=== PATIENT | female | born 1990 | race American Indian/Alaskan Native ===

== ENCOUNTER 2016-10-24 19:44 | Emergency (ER) | payer BC, MEDICAID ==
[2016-10-24 20:04] VITALS: RESP 20; TEMP 99.1; BMI 28.3
[2016-10-24] MEDS ORDERED: Sodium Chloride 0.9% 1,000 ML IV STA (21:31)
[2016-10-24 21:44] LABS: ADD MANUAL DIFF? NO
[2016-10-24 21:55] LABS: BASO # 0.03 K/mm3 (0.0-2.0); BASO % 0.4 % (0.0-3.0); EOS # 0.1 (0.0-0.7); EOS % 1.8 % (1.5-5.0); GRAN # 2.79 (1.4-6.5); GRAN % 38.7 % (50.0-68.0); HEMATOCRIT 38.4 % (36.0-48.0); LYMPH # 3.7 (1.2-3.4); LYMPH % 51.8 % (22.0-35.0); MEAN CELL VOLUME 88.9 fL (80.0-105.0); MEAN CORPUSCULAR HEMOGLOBIN 29.6 pg (25.0-35.0); MEAN CORPUSCULAR HGB CONC 33.3 g/dl (31.0-37.0); MEAN PLATELET VOLUME 8.7 fl (7.0-11.0); MONO # 0.5 (0.1-0.6); MONO % 7.3 % (1.0-6.0); PLATELET COUNT 308 10^3/uL (120.0-450.0); RED CELL DISTRIBUTION WIDTH 13.1 % (11.5-14.5); WHITE BLOOD COUNT 7.2 10^3/ul (4.5-11.0)
[2016-10-24 21:57] LABS: ALB/GLOB RATIO 1.1 (1.1-1.8); ALKALINE PHOSPHATASE 69 U/L (38-133); ALT/SGPT 25 U/L (7-56); AST/SGOT 20 U/L (15-39); BILIRUBIN,TOTAL 0.8 mg/dL (0.2-1.3); BLOOD UREA NITROGEN 11 mg/dL (7-21); CALCIUM 9.5 mg/dL (8.4-10.5); CARBON DIOXIDE 31 mmol/L (21-33); CHLORIDE 100 mmol/L (98-107); GFR AFRICAN-AMERICAN > 60; GLUCOSE,RANDOM 85 mg/dL (70-110); POTASSIUM 4.2 mmol/L (3.6-5.0); SODIUM 140 mmol/L (132-148); TOTAL PROTEIN 8.1 g/dL (5.8-8.3)
[2016-10-24 22:07] LABS: PH,URINE 6.5 (4.7-8.0); URINE BILIRUBIN NEGATIVE (NEGATIVE); URINE BLOOD NEGATIVE (NEGATIVE); URINE GLUCOSE (UA) NEGATIVE (NEGATIVE); URINE KETONE NEGATIVE (NEGATIVE); URINE LEUKOCYTE ESTERASE NEGATIVE Leu/uL (NEGATIVE); URINE PROTEIN NEGATIVE mg/dL (<30 mg/dL); URINE UROBILINOGEN 0.2 E.U./dL (<1 E.U./dL)
[2016-10-24 22:21] LABS: URINE APPEARANCE CLEAR (CLEAR); URINE COLOR YELLOW (YELLOW)
--- NOTE | 2016-10-24 22:54 | ED PDOC ---
Arrival/HPI - General Chief Complaint: Female Genitourinary Time Seen by Provider: 10/24/16 20:09 Historian: Patient - History of Present Illness Narrative History of Present Illness (Text): 10/24/16 22:51 25-year-old female presents today with a one-week history of migraines. Patient states for the past week she's been having on and off headaches. Patient states she takes Motrin for pain with some improvement. She denies dizziness or weakness. Denies chest pain or shortness of breath. Patient states she's had headaches in the past but never as severe. Patient states headache started about a week ago as a throbbing sensation gradually increasing. Patient states she is able to sleep when she wakes up sometimes she has the headache and sometimes she doesn't. She denies any recent trauma or injury. She denies neck or back pain. Denies vomiting or diarrhea. Patient also complaining of vaginal pressure. Patient denies vaginal discharge. She denies . She denies any abdominal pain. She denies any urinary symptoms. Patient states she just has this pressure in the suprapubic region and states that the last time that she had this she had a polyp that needed to be removed by her skin grader. Time/Duration: 1 week Symptom Onset: Gradual Symptom Course: Intermittent Quality: Throbbing Severity Level: 4 Past Medical History - Provider Review Nursing Documentation Reviewed: Yes - Travel History Have you recently traveled outside [place] w/in the past 3 mons?: No - Infectious Disease Hx of Infectious Diseases: None - Psychiatric Hx Substance Use: No - Surgical History Other/Comment: pylops removed, fibroids removed. - Anesthesia Hx Anesthesia: Yes Hx Anesthesia Reactions: No Family/Social History - Physician Review Nursing Documentation Reviewed: Yes Family/Social History: Unknown Family HX Smoking Status: Never Smoked Hx Alcohol Use: Yes Hx Substance Use: No Allergies/Home Meds Allergies/Adverse Reactions: Allergies No Known Allergies Allergy (Verified 10/24/16 20:04) Review of Systems - Review of Systems Constitutional: absent: Fatigue, Fevers ENT: absent: Sinus Congestion Respiratory: absent: SOB, Cough Cardiovascular: absent: Chest Pain, Palpitations Gastrointestinal: Abdominal Pain. absent: Constipation, Diarrhea, Nausea, Vomiting Genitourinary Female: absent: Dysuria, Frequency, Hematuria, Vaginal Bleeding, Vaginal Discharge Musculoskeletal: absent: Arthralgias, Back Pain, Neck Pain Skin: absent: Rash, Pruritis Neurological: Headache. absent: Dizziness, Gait Changes, Speech Changes, Disequilibrium, Seizure Psychiatric: absent: Anxiety, Depression, Suicidal Ideation Physical Exam Vital Signs Reviewed: Yes Vital Signs Temp Pulse Resp BP Pulse Ox 10/25/16 00:13 81 20 131/69 100 10/24/16 20:04 99.1 F 74 20 164/86 H 99 Temperature: Afebrile Blood Pressure: Hypertensive Pulse: Regular Respiratory Rate: Normal Appearance: Positive for: Well-Appearing, Non-Toxic, Comfortable Pain Distress: None Mental Status: Positive for: Alert and Oriented X 3 - Systems Exam Head: Present: Atraumatic Pupils: Present: PERRL Extroacular Muscles: Present: EOMI Conjunctiva: Present: Normal Mouth: Present: Moist Mucous Membranes Pharnyx: Present: Normal Nose (External): Present: Atraumatic Nose (Internal): Present: Normal Inspection Neck: Present: Normal Range of Motion Respiratory/Chest: Present: Clear to Auscultation, Good Air Exchange. No: Respiratory Distress, Accessory Muscle Use Cardiovascular: Present: Regular Rate and Rhythm, Normal S1, S2. No: Murmurs Abdomen: Present: Normal Bowel Sounds. No: Tenderness, Distention, Peritoneal Signs, Rebound, Guarding Genitourinary/Pelvic Exam: Present: Other (PT REFUSED PELVIC EXAMINATION) Back: Present: Normal Inspection. No: Midline Tenderness, Paraspinal Tenderness Upper Extremity: Present: Normal ROM Lower Extremity: Present: Normal ROM Neurological: Present: GCS=15, Speech Normal, Motor Func Grossly Intact Skin: Present: Warm, Dry, Normal Color. No: Rashes Psychiatric: Present: Alert, Oriented x 3 Medical Decision Making ED Course and Treatment: 10/24/16 22:54 25-year-old female nontoxic well-appearing no distress complaining of a one- week history of intermittent headaches and a 1 week history of suprapubic pressure. Urine hCG negative Patient is nontoxic well-appearing in no distress. She is laughing and face timing at bedside. CBC wnl CMP wnl UA: wnl Transvaginal ultrasound:FINDINGS: Uterus: Uterus measures approximately 9 x 5.2 x 6.1 cm. Endometrium is not well- demonstrated. Right ovary: Right ovary was not identified Left ovary: Left ovary was not identified Free fluid: There is trace free fluid in the cul-de-sac Bladder: Bladder is incompletely distended which limits evaluation. IMPRESSION: Limited transabdominal pelvic ultrasound due to incomplete bladder distention EXAM: US Pelvis, Transvaginal There are no prior studies for comparison. FINDINGS: Uterus: Uterus is retroflexed. The uterus measures approximate 8.4 x 5.6 x 5.6 cm.There is a nabothian cyst in the cervix. Endometrium measures opacity 17 mm in width Right ovary: Right ovary measures approximately 4.03 x 2.37 x 2.79 cm.There are multiple small follicles. There is intraovarian blood flow. Left ovary: Left ovary measures approximately 3.83 x 2.99 x 3.21 cm.There are multiple small follicles. There is intraovarian blood flow. Free fluid: There is a small amount of free fluid in the cul-de-sac. Bladder: Empty bladder which cannot be evaluated with this probe. IMPRESSION: Prominent endometrium; no torsion head CT: FINDINGS: Brain: Ventricles are normal in size and configuration. There is no midline shift. There are no intraaxial or extra-axial mass lesions or areas of hemorrhage. There are no abnormal fluid collections. Kemp-white differentiation is maintained. Ventricles: See above. Bones: Cranial vault is intact. Soft tissues: unremarkable Sinuses: There is no acute sinusitis. There is a small retention cyst/polyp in the left maxillary antrum Ears and mastoids: Middle ears and mastoids are unremarkable Orbits: Orbital contents are unremarkable. IMPRESSION: No acute intracranial abnormality pt given toradol and reglan 10/25/16 01:05 i discussed all results in depth with patient; pt non toxic well appearing; no distress. bp improved; i advised patient of elevated blood pressure and need for f/u with pmd to have bp checked; i have advised f/u with neurologist regarding headaches and f/u with sales relationship manager for lower abdominal pain. advised immediate return if symptoms worsen,persist or if new symptoms develop. impression; headache, abdominal pain increase fluids motrin every 6 hours as needed for pain follow up with the primary care physician within the next 2 days follow up with the neurologist within the next 2 days follow up with the MACHINE COIL ASSEMBLER within the next 2 days return if symptoms worsen,persist or if new symptoms develop; high fevers, increasing pain, nausea/vomiting, dizziness or if any other concerning symptoms develop. - Lab Interpretations Lab Results: 10/24/16 21:30 10/24/16 21:30 Lab Results 10/24/16 21:30: WBC 7.2, RBC 4.32, Hgb 12.8, Hct 38.4, MCV 88.9, MCH 29.6, MCHC 33.3, RDW 13.1, Plt Count 308, MPV 8.7, Gran % 38.7 L, Lymph % (Auto) 51.8 H, [place] % (Auto) 7.3 H, Eos % (Auto) 1.8, Baso % (Auto) 0.4, Gran # 2.79, Lymph # 3.7 H, [place] # 0.5, Eos # 0.1, Baso # 0.03 10/24/16 21:30: Sodium 140, Potassium 4.2, Chloride 100, Carbon Dioxide 31, Anion Gap 13, BUN 11, Creatinine 0.7, Est GFR ( Amer) > 60, Est GFR (Non- Af Amer) > 60, Random Glucose 85, Calcium 9.5, Total Bilirubin 0.8, AST 20, ALT 25, Alkaline Phosphatase 69, Total Protein 8.1, Albumin 4.3, Globulin 3.8, Albumin/Globulin Ratio 1.1 10/24/16 21:15: Urine Color Yellow, Urine Appearance Clear, Urine pH 6.5, Ur Specific Maud 1.010, Urine Protein Negative, Urine Glucose (UA) Negative, Urine Ketones Negative, Urine Blood Negative, Urine Nitrate Negative, Urine Bilirubin Negative, Urine Urobilinogen 0.2, Ur Leukocyte Esterase Negative - RAD Interpretation Radiology Orders: 10/24/16 21:44 TRANSVAGINAL [US] Stat 10/24/16 22:55 HEAD W/O CONTRAST [CT] Stat - Medication Orders Current Medication Orders: Sodium Chloride (Sodium Chloride 0.9%) 1,000 mls @ 999 mls/hr IV .Q1H1M STA Stop: 10/25/16 01:48 Last Admin: 10/25/16 01:02 Dose: 999 mls/hr Discontinued Medications Sodium Chloride (Sodium Chloride 0.9%) 1,000 mls @ 999 mls/hr IV .Q1H1M STA Stop: 10/24/16 22:31 Last Admin: 10/24/16 21:30 Dose: 999 mls/hr Ketorolac Tromethamine (Toradol) 30 mg IVP STAT STA Stop: 10/24/16 22:48 Last Admin: 10/24/16 23:44 Dose: 30 mg Metoclopramide HCl (Reglan) 10 mg IVP STAT STA Stop: 10/25/16 00:49 Last Admin: 10/25/16 01:02 Dose: 10 mg Disposition/Present on Arrival - Present on Arrival Any Indicators Present on Arrival: No History of DVT/PE: No History of Uncontrolled Diabetes: No Urinary Catheter: No History of Decub. Ulcer: No History Surgical Site Infection Following: None - Disposition Have Diagnosis and Disposition been Completed?: Yes Diagnosis: Headache, Abdominal pain Disposition: HOME/ ROUTINE Disposition Time: 01:08 Patient Plan: Discharge Condition: GOOD Discharge Instructions (ExitCare): General Headache (ED), Acute Abdominal Pain (ED) Additional Instructions: increase fluids motrin every 6 hours as needed for pain follow up with the primary care physician within the next 2 days follow up with the neurologist within the next 2 days follow up with the MACHINE COIL ASSEMBLER within the next 2 days return if symptoms worsen,persist or if new symptoms develop; high fevers, increasing pain, nausea/vomiting, dizziness or if any other concerning symptoms develop. Prescriptions: Ibuprofen [Motrin] 600 mg PO Q6H PRN #20 tab PRN Reason: pain/fever reduction Referrals: Juan David Sandoval MD [Primary Care Provider] - Follow up with primary Marcin Lay MD [Staff Provider] - Follow up with primary Margret Jain MD [Staff Provider] - Follow up with primary Forms: WORK NOTE
--- NOTE | 2016-10-24 23:26 | US ---
EXAM: US Pelvis Complete, Transabdominal CLINICAL HISTORY: 25 years old, female; Pain; Vaginal pain; LMP 10/10/16 TECHNIQUE: Real-time transabdominal pelvic ultrasound (complete) with image documentation. COMPARISON: There are no prior studies for comparison. FINDINGS: Uterus: Uterus measures approximately 9 x 5.2 x 6.1 cm. Endometrium is not well-demonstrated. Right ovary: Right ovary was not identified Left ovary: Left ovary was not identified Free fluid: There is trace free fluid in the cul-de-sac Bladder: Bladder is incompletely distended which limits evaluation. IMPRESSION: Limited transabdominal pelvic ultrasound due to incomplete bladder distention EXAM: US Pelvis, Transvaginal CLINICAL HISTORY: 25 years old, female; Pain; Vaginal pain; LMP 10/10/16 TECHNIQUE: Real-time transvaginal pelvic ultrasound (complete) with image documentation. Transvaginal imaging was used for better evaluation of the endometrium and adnexa. EXAM DATE/TIME: 10/24/2016 9:44 PM COMPARISON: There are no prior studies for comparison. FINDINGS: Uterus: Uterus is retroflexed. The uterus measures approximate 8.4 x 5.6 x 5.6 cm.There is a nabothian cyst in the cervix. Endometrium measures opacity 17 mm in width Right ovary: Right ovary measures approximately 4.03 x 2.37 x 2.79 cm.There are multiple small follicles. There is intraovarian blood flow. Left ovary: Left ovary measures approximately 3.83 x 2.99 x 3.21 cm.There are multiple small follicles. There is intraovarian blood flow. Free fluid: There is a small amount of free fluid in the cul-de-sac. Bladder: Empty bladder which cannot be evaluated with this probe. IMPRESSION: Prominent endometrium; no torsion
--- NOTE | 2016-10-24 23:29 | CT ---
EXAM: CT Head Without Intravenous Contrast CLINICAL HISTORY: 25 years old, female; Pain; Headache; Headache not specified TECHNIQUE: Axial computed tomography images of the head/brain without intravenous contrast. This CT exam was performed using one or more of the following dose reduction techniques: automated exposure control, adjustment of the mA and/or kV according to patient size, and/or use of iterative reconstruction technique. EXAM DATE/TIME: 10/24/2016 10:55 PM COMPARISON: There are no prior studies for comparison. FINDINGS: Brain: Ventricles are normal in size and configuration. There is no midline shift. There are no intra-axial or extra-axial mass lesions or areas of hemorrhage. There are no abnormal fluid collections. Kemp-white differentiation is maintained. Ventricles: See above. Bones: Cranial vault is intact. Soft tissues: unremarkable Sinuses: There is no acute sinusitis. There is a small retention cyst/polyp in the left maxillary antrum Ears and mastoids: Middle ears and mastoids are unremarkable Orbits: Orbital contents are unremarkable. IMPRESSION: No acute intracranial abnormality
[2016-10-25 00:15] VITALS: BP 131/69; PULSE 81; O2SAT 100
[2016-10-25] MEDS: Sodium Chloride 0.9% 1,000 ML IV STA ×2 (01:02→01:50)
== END 2016-10-25 01:35 | disposition home or self-care (01) ==
LOC: MERGE 19:44 → ED 19:44
DX: R51 Headache (principal); R10.9 Unspecified abdominal pain
CPT/HCPCS: 70450; 76830; 80053; 81003; 85025; 96374; 96375; 99284; J1885; J2765; J7040

== ENCOUNTER 2017-03-08 22:39 | Emergency (ER) | payer BC, MEDICAID ==
[2017-03-08 22:45] VITALS: BMI 28.0
[2017-03-08 23:02] VITALS: BP 120/72; TEMP 98.2
--- NOTE | 2017-03-08 23:24 | ED PDOC ---
Arrival/HPI - General Chief Complaint: Chest Pain Time Seen by Provider: 03/08/17 23:15 Historian: Patient - History of Present Illness Narrative History of Present Illness (Text): 03/08/17 23:23 Miky Love is a 26 year old female who presents to the Emergency department complaining of intermittent mid-sternal chest pain since yesterday evening. Patient states pain radiates to her neck and back, notes it is worsened with movement and deep inspiration. Patient denies any fever, chills, shortness of breath, nausea, vomiting, diarrhea, urinary symptoms, headache, dizziness, or any other complaints. Symptom Onset: Gradual Symptom Course: Unchanged Activities at Onset: Light Context: Home Past Medical History - Provider Review Nursing Documentation Reviewed: Yes - Infectious Disease Hx of Infectious Diseases: None - Neurological Hx Migraine: Yes - Psychiatric Hx Substance Use: No - Surgical History Other/Comment: pylops removed, fibroids removed. - Anesthesia Hx Anesthesia: Yes - Suicidal Assessment Feels Threatened In Home Enviroment: No Family/Social History - Physician Review Nursing Documentation Reviewed: Yes Family/Social History: Unknown Family HX Smoking Status: Never Smoked Hx Alcohol Use: Yes Hx Substance Use: No Allergies/Home Meds Allergies/Adverse Reactions: Allergies No Known Allergies Allergy (Verified 03/08/17 22:59) Home Medications: Home Meds Medication Instructions Recorded Confirmed No Known Home Med 03/08/17 03/08/17 Review of Systems - Physician Review All systems were reviewed & negative as marked: Yes - Review of Systems Constitutional: Normal. absent: Fevers Eyes: Normal ENT: Normal Respiratory: Normal Cardiovascular: Chest Pain Gastrointestinal: Normal. absent: Abdominal Pain, Diarrhea, Nausea, Vomiting Genitourinary Female: Normal. absent: Dysuria, Frequency, Hematuria, Urine Output Changes Musculoskeletal: Back Pain, Neck Pain Skin: Normal. absent: Rash Neurological: Normal. absent: Headache, Dizziness Endocrine: Normal Hemo/Lymphatic: Normal Psychiatric: Normal Physical Exam Vital Signs Reviewed: Yes Vital Signs Temp Pulse Pulse Resp BP Pulse Ox 03/09/17 01:27 77 19 99 03/08/17 23:01 98.2 F 79 17 120/72 98 03/08/17 23:00 79 Temperature: Afebrile Blood Pressure: Normal Pulse: Regular Respiratory Rate: Normal Appearance: Positive for: Well-Appearing, Non-Toxic, Comfortable Pain Distress: None Mental Status: Positive for: Alert and Oriented X 3 - Systems Exam Head: Present: Atraumatic, Normocephalic Pupils: Present: PERRL Extroacular Muscles: Present: EOMI Conjunctiva: Present: Normal Mouth: Present: Moist Mucous Membranes Neck: Present: Normal Range of Motion Respiratory/Chest: Present: Clear to Auscultation, Good Air Exchange. No: Respiratory Distress, Accessory Muscle Use Cardiovascular: Present: Regular Rate and Rhythm, Normal S1, S2. No: Murmurs Abdomen: Present: Normal Bowel Sounds. No: Tenderness, Distention, Peritoneal Signs Back: Present: Normal Inspection Upper Extremity: Present: Normal Inspection. No: Cyanosis, Edema Lower Extremity: Present: Normal Inspection. No: Edema Neurological: Present: GCS=15, CN II-XII Intact, Speech Normal Skin: Present: Warm, Dry, Normal Color. No: Rashes Psychiatric: Present: Alert, Oriented x 3, Normal Insight, Normal Concentration Medical Decision Making ED Course and Treatment: 03/08/17 23:23 Impression: 26 year old female complaining of mid-sternal chest pain radiating to neck and back, worse with movement/deep inspiration. Plan: -- EKG -- Chest X-ray -- Labs, cardiac enzymes, D-dimer -- Urinalysis, urine cultures -- Reassess and disposition Progress Notes: Reviewed EKG, NSR at [address]-segment elevations or depressions, no T-wave inversions, normal intervals. 03/09/17 00:30 Reviewed radiology, Chest X-ray shows no acute processes. 03/09/17 01:20 On reevaluation the patient feels better and is in no acute distress. I have discussed the results and plan with the patient, who expresses understanding. Patient given the opportunity to ask question, all questions were answered and there is agreement with the plan to discharge the patient home Patient is stable for discharge. Patient was instructed to follow up with physician/clinic in 1-2 days or return if symptoms persist/worsen or new concerning symptoms arise. - Lab Interpretations Microbiology Results: Microbiology Results 03/08/17 23:05 Urine,Clean Catch Urine Culture - Final No Growth (<1,000 CFU/ML) Lab Results: 03/08/17 22:45 03/08/17 22:45 Lab Results 03/08/17 22:45: D-Dimer, Quantitative 0.29 03/08/17 22:45: Sodium 140, Potassium 4.1, Chloride 104, Carbon Dioxide 26, Anion Gap 14, BUN 14, Creatinine 0.9, Est GFR ( Amer) > 60, Est GFR (Non- Af Amer) > 60, Random Glucose 77, Calcium 9.2, Magnesium 1.9, Total Bilirubin 0.5, AST 20, ALT 13, Alkaline Phosphatase 61, Lactate Dehydrogenase 396, Total Creatine Kinase 95, Troponin I < 0.01, Total Protein 7.4, Albumin 4.2, Globulin 3.2, Albumin/Globulin Ratio 1.3 03/08/17 22:45: Urine Color Yellow, Urine Appearance Clear, Urine pH 6.0, Ur Specific [place] 1.020, Urine Protein Negative, Urine Glucose (UA) Negative, Urine Ketones Trace H, Urine Blood Negative, Urine Nitrate Negative, Urine Bilirubin Negative, Urine Urobilinogen 1.0 H, Ur Leukocyte Esterase Trace H, Urine RBC 0 - 2, Urine WBC 2 - 5, Ur Epithelial Cells 3 - 4, Urine Bacteria Occ 03/08/17 22:45: WBC 6.9, RBC 4.17, Hgb 11.6 L, Hct 36.1, MCV 86.6, MCH 27.8, MCHC 32.1, RDW 14.1, Plt Count 327, MPV 9.0, Gran % 38.2 L, Lymph % (Auto) 50.2 H, [place] % (Auto) 8.9 H, Eos % (Auto) 2.3, Baso % (Auto) 0.4, Gran # 2.61, Lymph # 3.4, [place] # 0.6, Eos # 0.2, Baso # 0.03 I have reviewed the lab results: Yes - RAD Interpretation Radiology Orders: 03/08/17 23:29 CHEST PORTABLE [RAD] Stat Machine Steak Tenderizer: ED Physician - EKG Interpretation Interpreted by ED Physician: Yes Type: 12 lead EKG - Scribe Statement The provider has reviewed the documentation as recorded by the Naresh Guzman Provider Scribe Attestation: All medical record entries made by the Scribe were at my direction and personally dictated by me. I have reviewed the chart and agree that the record accurately reflects my personal performance of the history, physical exam, medical decision making, and the department course for this patient. I have also personally directed, reviewed, and agree with the discharge instructions and disposition. Disposition/Present on Arrival - Present on Arrival Any Indicators Present on Arrival: No History of DVT/PE: No History of Uncontrolled Diabetes: No Urinary Catheter: No History of Decub. Ulcer: No History Surgical Site Infection Following: None - Disposition Have Diagnosis and Disposition been Completed?: Yes Diagnosis: Chest discomfort Disposition: HOME/ ROUTINE Disposition Time: 01:20 Condition: GOOD Discharge Instructions (ExitCare): Chest Pain (ED) Referrals: Desmond Alicea MD [Primary Care Provider] - Follow up with primary Forms: [facility] (Tanzanian), WORK NOTE
[2017-03-09 00:02] LABS: BASO # 0.03 K/mm3 (0.0-2.0); BASO % 0.4 % (0.0-3.0); EOS # 0.2 (0.0-0.7); EOS % 2.3 % (1.5-5.0); GRAN # 2.61 (1.4-6.5); GRAN % 38.2 % (50.0-68.0); HEMATOCRIT 36.1 % (36.0-48.0); LYMPH # 3.4 (1.2-3.4); LYMPH % 50.2 % (22.0-35.0); MEAN CELL VOLUME 86.6 fl (80.0-105.0); MEAN CORPUSCULAR HEMOGLOBIN 27.8 pg (25.0-35.0); MEAN CORPUSCULAR HGB CONC 32.1 g/dl (31.0-37.0); MONO # 0.6 (0.1-0.6); MONO % 8.9 % (1.0-6.0); RED CELL DISTRIBUTION WIDTH 14.1 % (11.5-14.5); WHITE BLOOD COUNT 6.9 10^3/ul (4.5-11.0)
[2017-03-09 00:03] LABS: ALB/GLOB RATIO 1.3 (1.1-1.8); ALKALINE PHOSPHATASE 61 U/L (38-126); ALT/SGPT 13 U/L (7-56); AST/SGOT 20 U/L (14-36); BILIRUBIN,TOTAL 0.5 mg/dL (0.2-1.3); BLOOD UREA NITROGEN 14 mg/dL (7-21); CALCIUM 9.2 mg/dL (8.4-10.5); CARBON DIOXIDE 26 mmol/L (21-33); CHLORIDE 104 mmol/L (98-107); GFR AFRICAN-AMERICAN > 60; GLUCOSE,RANDOM 77 mg/dL (70-110); MAGNESIUM 1.9 mg/dL (1.7-2.2); POTASSIUM 4.1 mmol/L (3.6-5.0); SODIUM 140 mmol/L (132-148); TOTAL PROTEIN 7.4 g/dL (5.8-8.3); URINE BILIRUBIN NEGATIVE (NEGATIVE); URINE BLOOD NEGATIVE (NEGATIVE); URINE GLUCOSE (UA) NEGATIVE (NEGATIVE); URINE KETONE TRACE mg/dL (NEGATIVE); URINE LEUKOCYTE ESTERASE TRACE Leu/uL (NEGATIVE); URINE PROTEIN NEGATIVE mg/dL (<30 mg/dL)
[2017-03-09 00:05] LABS: URINE APPEARANCE CLEAR (CLEAR); URINE COLOR YELLOW (YELLOW)
[2017-03-09 00:14] LABS: URINE BACTERIA OCC (NEG); URINE RBC 0 - 2 /hpf (0-2)
[2017-03-09 00:31] LABS: TROPONIN I < 0.01 ng/mL
[2017-03-09 01:27] VITALS: PULSE 77; O2SAT 99
[2017-03-09 01:28] VITALS: RESP 19
--- NOTE | 2017-03-09 08:59 | RAD ---
HISTORY: cp COMPARISON: No prior. FINDINGS: LUNGS: No active pulmonary disease. PLEURA: No significant pleural effusion identified, no pneumothorax apparent. CARDIOVASCULAR: Normal. OSSEOUS STRUCTURES: No significant abnormalities. VISUALIZED UPPER ABDOMEN: Normal. OTHER FINDINGS: None. IMPRESSION: No active disease.
--- NOTE | 2017-03-09 09:05 | CARD ---
APPROVED REPORT EKG Measurement Heart [id number] <Conclusion> Normal sinus rhythm Normal ECG
== END 2017-03-09 01:28 | disposition home or self-care (01) ==
LOC: ED 22:39
DX: R07.9 Chest pain, unspecified (principal)

== ENCOUNTER 2017-06-19 21:48 | Emergency (ER) | payer MEDICAID, OTHER ==
[2017-06-19 22:43] VITALS: BMI 28.1
[2017-06-19 22:47] VITALS: BP 114/69; PULSE 90; RESP 18; TEMP 99.1; O2SAT 98
--- NOTE | 2017-06-20 | ED PDOC ---
Arrival/HPI - General Chief Complaint: Lower Extremity Problem/Injury Time Seen by Provider: 06/19/17 23:51 Historian: Patient - History of Present Illness Narrative History of Present Illness (Text): 06/19/17 23:52 26 y/o female, no pmh, nkda, c/o bilateral sole pain x 2 days with no fall or trauma. Pt. stated that she stands and walk alot, no fall or trauma, been having bilateral feet pain, no skin discoloration, no rash, no night sweat, no dizziness, no numbness or tingling, no other medical or psychological complaints. Past Medical History - Provider Review Nursing Documentation Reviewed: Yes - Infectious Disease Hx of Infectious Diseases: None - Neurological Hx Migraine: Yes - Psychiatric Hx Substance Use: No - Surgical History Other/Comment: pylops removed, fibroids removed. - Anesthesia Hx Anesthesia: Yes - Suicidal Assessment Feels Threatened In Home Enviroment: No Family/Social History - Physician Review Nursing Documentation Reviewed: Yes Family/Social History: Unknown Family HX Smoking Status: Never Smoked Hx Alcohol Use: Yes Hx Substance Use: No Allergies/Home Meds Allergies/Adverse Reactions: Allergies No Known Allergies Allergy (Verified 03/08/17 22:59) Review of Systems - Review of Systems Constitutional: absent: Fatigue, Fevers Eyes: absent: Vision Changes ENT: absent: Hearing Changes Respiratory: absent: SOB, Cough Cardiovascular: Chest Pain Gastrointestinal: absent: Abdominal Pain, Diarrhea, Nausea, Vomiting Musculoskeletal: Arthralgias, Myalgias. absent: Back Pain, Neck Pain, Joint Swelling Skin: absent: Rash, Pruritis Neurological: absent: Headache, Dizziness Psychiatric: absent: Anxiety, Depression Physical Exam Vital Signs Reviewed: Yes Vital Signs Temp Pulse Resp BP Pulse Ox 06/19/17 22:46 99.1 F 90 18 114/69 98 Temperature: Afebrile Blood Pressure: Normal Pulse: Regular Respiratory Rate: Normal Appearance: Positive for: Well-Appearing, Non-Toxic, Comfortable Pain Distress: Mild Mental Status: Positive for: Alert and Oriented X 3 - Systems Exam Head: Present: Atraumatic, Normocephalic Pupils: Present: PERRL Extroacular Muscles: Present: EOMI Conjunctiva: Present: Normal Mouth: Present: Moist Mucous Membranes Neck: Present: Normal Range of Motion Respiratory/Chest: Present: Clear to Auscultation, Good Air Exchange. No: Respiratory Distress, Accessory Muscle Use Cardiovascular: Present: Regular Rate and Rhythm, Normal S1, S2. No: Murmurs Abdomen: Present: Normal Bowel Sounds. No: Tenderness, Distention, Peritoneal Signs Back: Present: Normal Inspection Upper Extremity: Present: Normal Inspection. No: Cyanosis, Edema Lower Extremity: Present: Normal Inspection, Other (Bilateral lower feets: mild +ttp on the plantar sole region with the callus noted, no cellulitis or streaking, no jasso bite or toe/feet discoloration noted, FROM without limitation, sensation intact, motor 5/5, neurovascular intact. ). No: Edema Neurological: Present: GCS=15, CN II-XII Intact, Speech Normal Skin: Present: Warm, Dry, Normal Color. No: Rashes Psychiatric: Present: Alert, Oriented x 3, Normal Insight, Normal Concentration Medical Decision Making ED Course and Treatment: 06/20/17 00:01 -Urine hcg negative -Discharge home with naproxen, follow up with your own pmd and gi technician within 2 days, return to the ER for any new or worsening signs or symptoms. - PA / CARDIOLOGY CLINICAL NURSE SPECIALIST / Resident Statement MD/DO has reviewed & agrees with the documentation as recorded. Disposition/Present on Arrival - Present on Arrival Any Indicators Present on Arrival: No History of DVT/PE: No History of Uncontrolled Diabetes: No Urinary Catheter: No History of Decub. Ulcer: No History Surgical Site Infection Following: None - Disposition Have Diagnosis and Disposition been Completed?: Yes Diagnosis: Plantar fasciitis, Callus Disposition: HOME/ ROUTINE Disposition Time: 00:02 Patient Plan: Discharge Condition: GOOD Discharge Instructions (ExitCare): Plantar Fasciitis (ED) Print Language: SLOVENIAN Additional Instructions: -Discharge home with naproxen, follow up with your own pmd and gi technician within 2 days, return to the ER for any new or worsening signs or symptoms. Prescriptions: Naproxen 500 mg PO BID PRN #24 tab PRN Reason: Other Referrals: Ivette Luke DPM [Staff Provider] - Follow up with primary Forms: [employer] (Tanzanian), WORK NOTE
== END 2017-06-20 00:15 | disposition home or self-care (01) ==
LOC: ED 21:48
DX: M72.2 Plantar fascial fibromatosis (principal); L84 Corns and callosities

== ENCOUNTER 2018-03-24 16:29 | Emergency (ER) | payer BC, MEDICAID, OTHER ==
--- NOTE | 2018-03-24 16:52 | ED PDOC ---
Arrival/HPI - General Time Seen by Provider: 03/24/18 16:34 Historian: Patient - History of Present Illness Narrative History of Present Illness (Text): 03/24/18 16:50 A 27 year old female, with no significant past medical history, presents to the emergency department with a complaint of mid upper back pain radiating to the lower back pain. The patient states that her pain is sometimes exacerbated with ambulating. She notes that she is still able to ambulate. The patient took Tylenol with no relief of her symptoms. The patient The patient denies fevers, chills, headache, dizziness, sore throat, cough, chest pain, shortness of breath, dyspnea on exertion, abdominal pain, nausea, vomiting, diarrhea, neck pain, urinary/bowel changes or any other complaint. Time/Duration: Other (2 Days) Symptom Onset: Sudden Symptom Course: Unchanged Activities at Onset: Rest, Light Context: Home Past Medical History - Provider Review Nursing Documentation Reviewed: Yes - Infectious Disease Hx of Infectious Diseases: None - Cardiac Hx Cardiac Disorders: No - Pulmonary Hx Respiratory Disorders: No - Neurological Hx Migraine: Yes - HEENT Hx HEENT Disorder: No - Renal Hx Renal Disorder: No - Endocrine/Metabolic Hx Endocrine Disorders: No - Hematological/Oncological Hx Blood Disorders: No - Integumentary Hx Dermatological Disorder: No - Musculoskeletal/Rheumatological Hx Musculoskeletal Disorders: No - Gastrointestinal Hx Gastrointestinal Disorders: No - Genitourinary/Gynecological Hx Genitourinary Disorders: No - Psychiatric Hx Psychophysiologic Disorder: No Hx Substance Use: No - Surgical History Other/Comment: pylops removed, fibroids removed. - Anesthesia Hx Anesthesia: Yes - Suicidal Assessment Feels Threatened In Home Enviroment: No Family/Social History - Physician Review Nursing Documentation Reviewed: Yes Family/Social History: No Known Family HX Smoking Status: Never Smoked Hx Alcohol Use: Yes Hx Substance Use: No Allergies/Home Meds Allergies/Adverse Reactions: Allergies No Known Allergies Allergy (Verified 03/24/18 16:53) Review of Systems - Physician Review All systems were reviewed & negative as marked: Yes - Review of Systems Constitutional: absent: Fevers ENT: absent: Sore Throat Respiratory: absent: SOB, Cough Cardiovascular: absent: Chest Pain, RAMOS Gastrointestinal: absent: Abdominal Pain, Stool Changes, Diarrhea, Nausea, Vomiting Genitourinary Female: absent: Urine Output Changes Musculoskeletal: Back Pain (Mid-upper back pain radiating to lower back). absent: Neck Pain Neurological: absent: Headache, Dizziness Physical Exam Appearance: Positive for: Well-Appearing, Non-Toxic, Comfortable Pain Distress: None Mental Status: Positive for: Alert and Oriented X 3 - Systems Exam Head: Present: Atraumatic, Normocephalic Pupils: Present: PERRL Extroacular Muscles: Present: EOMI Conjunctiva: Present: Normal Mouth: Present: Moist Mucous Membranes Neck: Present: Normal Range of Motion Respiratory/Chest: Present: Clear to Auscultation, Good Air Exchange. No: Respiratory Distress, Accessory Muscle Use Cardiovascular: Present: Regular Rate and Rhythm, Normal S1, S2. No: Murmurs Abdomen: No: Tenderness, Distention, Peritoneal Signs Back: Present: Paraspinal Tenderness (Bilateral paraspinal tenderness. ), Other (No saddle anesthesia. ). No: CVA Tenderness Upper Extremity: Present: Normal Inspection. No: Cyanosis, Edema Lower Extremity: Present: Normal Inspection. No: Edema Neurological: Present: GCS=15, CN II-XII Intact, Speech Normal Skin: Present: Warm, Dry, Normal Color. No: Rashes Psychiatric: Present: Alert, Oriented x 3, Normal Insight, Normal Concentration Medical Decision Making ED Course and Treatment: 03/24/18 16:54 Impression: A 27 year old female presents to the emergency department with a complaint of mid upper back pain radiating down to her lower back. No hx of HTN. No fall or trauma. No chest pain radiating to back. No hx of marfans or collagen based disorders. No hx of auto-immune issues in the family or in pt. No hx of PKD. No meningeal signs. No IVDU or fever or point tenderness along spine or hx of afib. Given well appearance, benign neuro exam, walking well in NAD will seek imaging, pain meds and reassessment. Plan: -- Thoracic Spine/ Lumbar Spine X- Ray -- Flexeril -- Reassess and disposition Prior Visits: Notes and results from previous visits were reviewed. Progress Notes: 03/24/18 19:26: Thoracic Spine X- Ray reviewed and interpreted by me shows no acute findings. Pt notes improvement of pain. Neuro exam remains unremarkable. Pt has no saddle anesthesia, walking well in NAD. Clear for D.c home. - Scribe Statement The provider has reviewed the documentation as recorded by the Naresh Mancia Provider Radhamesibe Attestation: All medical record entries made by the Naresh were at my direction and personally dictated by me. I have reviewed the chart and agree that the record accurately reflects my personal performance of the history, physical exam, medical decision making, and the department course for this patient. I have also personally directed, reviewed, and agree with the discharge instructions and disposition. Disposition/Present on Arrival - Present on Arrival Any Indicators Present on Arrival: No History of DVT/PE: No History of Uncontrolled Diabetes: No Urinary Catheter: No History Surgical Site Infection Following: None - Disposition Have Diagnosis and Disposition been Completed?: Yes Diagnosis: Back pain Disposition: HOME/ ROUTINE Disposition Time: 19:50 Condition: GOOD Discharge Instructions (ExitCare): Low Back Pain in Adults, Low Back Pain (DC), Upper Back Pain Additional Instructions: EM ALBRECHT, thank you for letting us take care of you today. Your provider was Brendan Medel and you were treated for BACK PAIN. The emergency medical care you received today was directed at your acute symptoms. If you were prescribed any medication, please fill it and take as directed. It may take several days for your symptoms to resolve. Return to the Emergency Department if your symptoms worsen, do not improve, or if you have any other problems. Please contact your doctor or call one of the physicians/clinics you have been referred to that are listed on the Patient Visit Information form that is included in your discharge packet. Bring any paperwork you were given at discharge with you along with any medications you are taking to your follow up visit. Our treatment cannot replace ongoing medical care by a primary care provider outside of the emergency department. Thank you for allowing the [facility] team to be part of your care today. If you had an X-Ray or CT scan: A Radiologist will review the ED reading if any change in treatment is needed we will contact you. If you had a blood, urine, or wound culture: It will take several days for the results, if any change in treatment is needed we will contact you. If you had an STI test: It will take 48 hours for the results. Please call after 1 week if you have not heard back. Prescriptions: RX: Cyclobenzaprine [Flexeril] 5 mg PO Q12H PRN 5 Days #10 tab PRN Reason: Pain, Moderate (4-7) Referrals: Monique Whitaker MD [Medical Doctor] - Follow up with primary Forms: [employer] (Telugu), WORK NOTE
[2018-03-24 16:58] VITALS: RESP 18; O2SAT 100; BMI 28.7
[2018-03-24 20:04] VITALS: BP 128/74; PULSE 65; TEMP 98.2
--- NOTE | 2018-03-25 10:55 | RAD ---
Date of service: 03/24/2018 HISTORY: PAIN COMPARISON: No prior. FINDINGS: BONES: Alignment maintained. No fracture. DISC SPACES: Normal. SOFT TISSUES: Normal. OTHER FINDINGS: None. IMPRESSION: Normal radiographs of the thoracic spine.
--- NOTE | 2018-03-25 17:03 | RAD ---
Date of service: 03/24/2018 PROCEDURE: Radiographs of the Lumbar Spine. HISTORY: pain COMPARISON: No prior. FINDINGS: BONES: Normal alignment. No listhesis. No fracture. DISC SPACES: Unremarkable. OTHER FINDINGS: None. IMPRESSION: Unremarkable radiographs of the lumbar spine.
== END 2018-03-24 20:14 | disposition home or self-care (01) ==
LOC: ED 16:29
DX: M54.6 Pain in thoracic spine (principal); M54.5 Low back pain